=== PATIENT | female | born 1960 | race Caucasian/White ===

== ENCOUNTER 2016-11-12 12:25 | Day surgery (SDC) | payer OTHER ==
[~2016-11-12] VITALS: Ht 160 cm; Wt 80.7 kg
[~2016-11-12 12:25] MED LIST: 0.9% Sodium Chloride 1,000 ML IV SCH; BUPR-97 PO; CLON0.1T PO; POLY17PO6 PO; Sodium Chloride LOK Flush 10 mL Syringe IV PRN; TOPI50TA32 PO; TRAZ-115 PO; fentaNYL-PF 50 mCg/mL 2 mL Inj IVPUSH PRN
[2016-11-12 12:40] VITALS: BP 125/62; PULSE 59; RESP 14; O2SAT 96
[2016-11-12] MEDS ORDERED: DIVA250T2 PO (12:46)
[2016-11-12] MEDS ORDERED: ESOM20TA PO (12:46)
[2016-11-12 13:38] VITALS: BP 125/58; PULSE 52; RESP 16; O2SAT 94
[2016-11-12 13:49] VITALS: BP 97/57; PULSE 50; RESP 16; O2SAT 96
[2016-11-12 14:00] VITALS: BP 85/48; PULSE 56; RESP 16; O2SAT 96
--- NOTE | 2016-11-12 14:54 | ENDO ---
[address] [address] ENDOSCOPY PROCEDURE PATIENT: TERRY EDDY : 1960 MR#: [id number] ADMIT: 11/12/2016 JOB ID: [id number] DATE: 11/12/2016 PROCEDURE: Colonoscopy with snare polypectomy. PREOPERATIVE DIAGNOSIS(ES): Constipation. POSTOPERATIVE DIAGNOSIS(ES): 1. Small internal hemorrhoids. 2. A 5 mm rectal polyp, removed by hot snare polypectomy. ANESTHESIA: Fentanyl 100 mcg, versed 6 mg IV administered. COMPLICATIONS: None. BLOOD LOSS: Minimal. DESCRIPTION OF PROCEDURE: After risks and benefits were explained to the patient, informed consent was obtained. After anesthesia administered, colonoscope was inserted from the rectum to the cecum. Mucosa was carefully examined. Prep of the patient was excellent. After the procedure was done, the scope was withdrawn and procedure terminated. FINDINGS: Upon inspection of the anus, no masses, hemorrhoids, ulcers, or fissures were seen throughout the entire examination. There were nonbleeding small internal hemorrhoids. There was also a 5 mm rectal polyp, removed by hot snare polypectomy. No other polyps or masses were seen. IMPRESSION: 1. Small internal hemorrhoids. 2. A 5 mm rectal polyp, removed by hot snare polypectomy. RECOMMENDATIONS: Await pathology results. Stool softer as needed. If tubular adenoma, then next colonoscopy should be in five years given her family history of colon cancer in her father diagnosed at age of 59.
--- NOTE | 2016-11-23 15:01 | PATH ---
SURGICAL PATHOLOGY Attending Physician:Richard Monsalve MD CASE STATUS: Signed Out * Amended * PATIENT NAME: TERRY EDDY PID: [id number] : 1960 DATE COLLECTED:11/12/2016 23:49 SPECIMEN: Rectum, Biopsy CLINICAL HISTORY: 1). RECTAL POLYP X1 FINAL DIAGNOSIS: Rectum, Polyp, Biopsy: Hyperplastic polyp. ICD10 K62.1 This case was reviewed and interpreted by Dr. Iman Roche. The final diagnosis is unchanged. This amendment is issued in order for the report to cross the interface and be available in the hospital electronic medical record. GROSS DESCRIPTION: The specimen is received in one formalin filled container labeled with the patient's name, sublabeled "rectal polyp" and consists of a 0.2 x 0.2 x 0.2 CM portion of tissue which is entirely submitted in one cassette. 11/13/2016 [facility] ICD-9 CODES: CPT CODES: 1: 12715 AMENDMENT(S): Amended: 11/23/2016 by Alicja Hall Reason:Miscellaneous The final diagnosis is unchanged. This amendment is issued in order for the report to cross the interface and be available in the hospital electronic medical record. Previous Signout Date: 11/16/2016 Electronically Signed Out Melinda Dumont MD [facility] Pathology [facility] [address], [place] [address] Technical component performed at [facility], [address] [place] [address] Ave[address], [place], [address]
== END 2016-11-12 23:59 | disposition home or self-care (01) ==
LOC: END 12:25
PROVIDERS: ATTEND Internal Medicine Gastroenterology
DX: K59.00 Constipation, unspecified (principal); K62.1 Rectal polyp; K64.8 Other hemorrhoids
CPT/HCPCS: 45385; 88305; G0500; J7030